=== PATIENT | female | born 1995 | race African-American/Black ===

== ENCOUNTER 2022-05-15 00:01 | Emergency (ER) | payer OTHER ==
[2022-05-15 00:21] VITALS: BP 122/87; PULSE 90; RESP 18; TEMP 98.2; BMI 44.8
[2022-05-15] MEDS ORDERED: ALBUTEROL SO4 2.5/IPRATROPIUM 0.5 INH SOL 3 ML VIAL.NEB. NEB ONE ×2 (00:58→01:44)
[2022-05-15] MEDS ORDERED: predniSONE 20 MG TABLET (UD) PO ONE (01:23)
[2022-05-15] MEDS ORDERED: predniSONE 20 MG TABLET (UD) ONE (01:44)
[2022-05-15] MEDS: ALBUTEROL SO4 2.5/IPRATROPIUM 0.5 INH SOL 3 ML VIAL.NEB. NEB SCH (01:54)
== END 2022-05-15 03:31 | disposition home or self-care (01) ==
LOC: JER 00:01
PROC: 3E0F7GC Introduction of Other Therapeutic Substance into Respiratory Tract, Via Natural or Artificial Opening (ICD-10-PCS; principal; 2022-05-15)
DX: J45.901 Unspecified asthma with (acute) exacerbation (principal); R07.0 Pain in throat
CPT/HCPCS: 0241U-QW; 87070; 87651; 99284-25